=== PATIENT | female | born 1995 | race Native Hawaiian/Other Pacific Islander ===

== ENCOUNTER 2018-11-16 15:16 | Inpatient (IN) | payer OTHER ==
[~2018-11-16] VITALS: Ht 154.9 cm; Wt 67.3 kg
[2018-11-16] MEDS ORDERED: HYDRO50TAB PO (15:24)
[2018-11-16] MEDS ORDERED: MELA3TAB24 PO (15:24)
[2018-11-16 16:33] LABS: HEMATOCRIT 33.4 % (36.0-47.0); HEMOGLOBIN 9.8 g/dl (12.0-15.5); MEAN CORPUSCULAR HEMOGLOBIN 22.2 pg (27.0-33.0); MEAN CORPUSCULAR HGB CONC 29.3 g/dl (32.0-36.5); MEAN CORPUSCULAR VOLUME 75.7 fl (80.0-96.0); PLATELET COUNT, AUTOMATED 374 10^3/uL (150-450); RED BLOOD COUNT 4.41 10^6/uL (4.00-5.40); WHITE BLOOD COUNT 7.2 10^3/uL (4.0-10.0)
[2018-11-16 16:45] LABS: HCG, SERUM QUALITATIVE NEGATIVE (NEGATIVE)
[2018-11-16 16:49] LABS: AMPHETAMINES LEVEL URINE NEGATIVE (NEGATIVE); BARBITURATES URINE NEGATIVE (NEGATIVE); CANNABINOIDS URINE NEGATIVE (NEGATIVE); COCAINE METABOLITE URINE NEGATIVE (NEGATIVE); METHADONE URINE NEGATIVE (NEGATIVE); OPIATES URINE NEGATIVE (NEGATIVE); PHENCYCLIDINE URINE NEGATIVE (NEGATIVE)
[2018-11-16 16:57] LABS: ACETAMINOPHEN LEVEL < 2.0 UG/ML (10.0-30.0); ALBUMIN 4.4 GM/DL (3.2-5.2); ALT/SGPT 20 U/L (12-78); BILIRUBIN,DIRECT 0.1 MG/DL (0.0-0.2); BILIRUBIN,TOTAL 0.3 MG/DL (0.2-1.0); BLOOD UREA NITROGEN 8 MG/DL (7-18); CALCIUM LEVEL 9.1 MG/DL (8.5-10.1); CARBON DIOXIDE LEVEL 29 MEQ/L (21-32); CHLORIDE LEVEL 109 MEQ/L (98-107); CREATININE FOR GFR 0.77 MG/DL (0.55-1.30); ETHYL ALCOHOL (ETHANOL) < 0.003 % (0.000-0.010); GLOMERULAR FILTRATION RATE > 60.0 (>60); GLUCOSE, FASTING 94 MG/DL (70-100); POTASSIUM SERUM 4.3 MEQ/L (3.5-5.1); SALICYLATE LEVEL < 1.7 MG/DL (5.0-30.0); SODIUM LEVEL 141 MEQ/L (136-145); TOTAL PROTEIN 7.7 GM/DL (6.4-8.2)
[2018-11-16 17:44] LABS: BENZODIAZEPINES URINE NEGATIVE (NEGATIVE)
[2018-11-16] MEDS ORDERED: MELA3TAB41 PO (19:03)
[2018-11-16] MEDS ORDERED: HYDR-3363 PO (19:03)
[2018-11-16] MEDS ORDERED: MOM 30ML SUSPENSION UDC PO PRN (19:45)
[2018-11-16] MEDS ORDERED: hydrOXYzine 50 MG TAB PO PRN (19:45)
[2018-11-16] MEDS ORDERED: MAALOX 30 ML SUSP *UDC PO PRN (19:45)
[2018-11-16 22:14] VITALS: BP 122/57
[2018-11-16] MEDS: ACETAMINOPHEN TAB 650MG DOSE (2X325MG) PO PRN (22:51)
[2018-11-16] MEDS: traZODone 50 MG TAB PO PRN (22:51)
[2018-11-17 07:12] VITALS: BP 106/57
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
[2018-11-17] MEDS ORDERED: SERTRALINE HCL 25 MG TABLET PO ONE (15:00)
[2018-11-17 18:00] VITALS: BP 119/74
[2018-11-17] MEDS: PRAZOSIN 1 MG CAP PO SCH (21:42)
[2018-11-18 06:32] VITALS: BP 111/56
[2018-11-18] MEDS ORDERED: SERTRALINE HCL 25 MG TABLET PO SCH (09:00)
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
[2018-11-18 18:00] VITALS: BP 138/73
[2018-11-18] MEDS: PRAZOSIN 1 MG CAP PO SCH (23:12)
[2018-11-19 07:00] VITALS: BP 122/70
[2018-11-19] MEDS: SERTRALINE HCL 50 MG TAB PO SCH (08:50)
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
[2018-11-19 18:46] VITALS: BP 131/80
[2018-11-19] MEDS: PRAZOSIN 1 MG CAP PO SCH (20:48)
[2018-11-19] MEDS: traZODone 50 MG TAB PO PRN (23:51)
[2018-11-20 06:27] VITALS: BP 119/75
[2018-11-20] MEDS: SERTRALINE HCL 50 MG TAB PO SCH (08:32)
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
--- NOTE | 2018-11-20 16:20 | IPNPDOC ---
Subjective Date Seen The patient was seen on 11/20/18. Subjective Chief Complaint/HPI Patient is a 23-year-old female referred to the emergency room after she expressed suicidal ideation with plans to overdose on medication, along with alcohol abuse. Patient reportedly admitted self-medicating with alcohol. Events since last encounter Reconsulted for follow-up due to complaints of sore throat onset yesterday.. Denies chills or fever Objective Physical Examination Other physical findings GENERAL: NAD SKIN : Warm, dry intact HEENT: Oropharyngeal erythema CARDIOVASCULAR: Regular rate and rhythm, S1S2, no JVD, no edema, distal pulses + and palpable RESP: CTAB, no accessory muscle use noted ABDOMEN: BS+ non distended non tender MS: no joint deformities NEURO: Alert and oriented x 3, CN2-12 grossly intact PSYCH: no anxiety or agitation, appropriate mood and affect. A-FIB/CHADSVASC A-FIB History Current/History of A-Fib/PAF?: No Current Oral Anticoagulant The: No Assessment /Plan Assessment Pharyngitis Anemia Suicidal ideation Depression and anxiety Alcohol abuse Insomnia PLAN Rapid prep negative Awaiting final culture results Discussed with patient this could be viral and as such would weeded out Follow culture report and treat based on findings. Plan/VTE VTE Prophylaxis Ordered?: No VTE Exclusion Mechanical Proph: Low Risk for VTE VS, I&O, 24H, Fishbone Vital Signs/I&O Vital Signs Date Time Temp Pulse Resp B/P (MAP) Pulse Ox O2 Delivery O2 Flow Rate FiO2 11/20/18 06:27 99.0 100 18 119/75 (90) 11/17/18 12:32 Room Air 11/16/18 20:11 100 Laboratory Data Microbiology Microbiology 11/20/18 Group A Streptococcus Screen ([place]) - Final, Resulted 11/20/18 Group A Streptococcus Screen ([place]), Resulted Pending MAURICE COE [employer]ASTEW[employer] TREATMENT OPERATOR November 20, 2018 16:20
[2018-11-20 18:35] VITALS: BP 116/72
[2018-11-20] MEDS: PRAZOSIN 1 MG CAP PO SCH (21:01)
[2018-11-20] MEDS: traZODone 50 MG TAB PO PRN (22:57)
[2018-11-21 06:52] VITALS: BP 107/64
[2018-11-21] MEDS: SERTRALINE HCL 50 MG TAB PO SCH (09:18)
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
--- NOTE | 2018-11-21 16:59 | IPNPDOC ---
Subjective Date Seen The patient was seen on 11/21/18. Subjective Chief Complaint/HPI Patient is a 23-year-old female referred to the emergency room after she expressed suicidal ideation with plans to overdose on medication, along with alcohol abuse. Patient reportedly admitted self-medicating with alcohol. Events since last encounter Feels better today, throat not as sore. Strep test results discussed with her. Denies chills, fever, chest pain, SOB Objective Physical Examination Other physical findings GENERAL: NAD SKIN : Warm, dry intact HEENT: Oropharyngeal erythema CARDIOVASCULAR: Regular rate and rhythm, S1S2, no JVD, no edema, distal pulses + and palpable RESP: CTAB, no accessory muscle use noted ABDOMEN: BS+ non distended non tender MS: no joint deformities NEURO: Alert and oriented x 3, CN2-12 grossly intact PSYCH: no anxiety or agitation, appropriate mood and affect. A-FIB/CHADSVASC A-FIB History Current/History of A-Fib/PAF?: No Current Oral Anticoagulant The: No Assessment /Plan Assessment Pharyngitis Anemia Suicidal ideation Depression and anxiety Alcohol abuse Insomnia PLAN Negative findings discussed with patient, likely due to viral pharyngitis. Already improvement without antibiotic therapy. Plan/VTE VTE Prophylaxis Ordered?: No VTE Exclusion Mechanical Proph: Low Risk for VTE VS, I&O, 24H, Fishbone Vital Signs/I&O Vital Signs Date Time Temp Pulse Resp B/P (MAP) Pulse Ox O2 Delivery O2 Flow Rate FiO2 11/21/18 08:51 Room Air 11/21/18 06:52 98.1 63 18 107/64 (78) 11/16/18 20:11 100 Laboratory Data Microbiology Microbiology 11/20/18 Group A Streptococcus Screen ([place]) - Final, Resulted 11/20/18 Group A Streptococcus Screen ([place]), Resulted Pending MAURICE COE [employer] SAF[employer] COORDINATOR November 21, 2018 16:59
[2018-11-21 18:00] VITALS: BP 136/64
[2018-11-21] MEDS: PRAZOSIN 1 MG CAP PO SCH (21:33)
[2018-11-21] MEDS: traZODone 50 MG TAB PO PRN (22:13)
[2018-11-22 06:53] VITALS: BP 109/52
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
[2018-11-22] MEDS: SERTRALINE HCL 50 MG TAB PO SCH (09:33)
[2018-11-22 18:07] VITALS: BP 111/65
[2018-11-22] MEDS: PRAZOSIN 1 MG CAP PO SCH (20:57)
[2018-11-22] MEDS: ACETAMINOPHEN TAB 650MG DOSE (2X325MG) PO PRN (20:58)
[2018-11-22] MEDS: traZODone 50 MG TAB PO PRN (23:08)
[2018-11-23 06:42] VITALS: BP 101/61
[2018-11-23] MEDS: SERTRALINE HCL 50 MG TAB PO SCH (08:59)
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
[2018-11-23 18:00] VITALS: BP 110/73
[2018-11-23 20:46] VITALS: BP 136/69
[2018-11-23] MEDS: PRAZOSIN 1 MG CAP PO SCH (20:46)
[2018-11-23] MEDS: traZODone 50 MG TAB PO PRN (23:03)
[2018-11-24 06:50] VITALS: BP 103/60
[2018-11-24] MEDS: SERTRALINE HCL 50 MG TAB PO SCH (09:11)
[2018-11-24] MEDS ORDERED: SERT-155 PO ×2 (10:36→10:52)
[2018-11-24] MEDS ORDERED: MINI1CAP PO ×2 (10:36→10:52)
[2018-11-24] MEDS ORDERED: TRAZO50TA PO ×2 (10:36→10:52)
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
== END 2018-11-24 13:10 | disposition home or self-care (01) | DRG 881 ==
LOC: M ED 15:16 → M ED INP 19:36 → M PSY 22:07
PROVIDERS: ADMIT Psychiatry & Neurology Psychiatry; ATTEND Psychiatry & Neurology Child & Adolescent Psychiatry
DX: F43.21 Adjustment disorder with depressed mood (principal); R45.851 Suicidal ideations; F43.10 Post-traumatic stress disorder, unspecified; Z79.899 Other long term (current) drug therapy; F10.10 Alcohol abuse, uncomplicated; D64.9 Anemia, unspecified; G47.00 Insomnia, unspecified; F41.9 Anxiety disorder, unspecified; J02.9 Acute pharyngitis, unspecified